=== PATIENT | male | born 1965 | race Caucasian/White ===

== ENCOUNTER 2019-03-06 09:49 | Emergency (ER) | payer SELFPAY ==
[2019-03-06 10:05] VITALS: TEMP 98.7; BMI 25.8
[2019-03-06] MEDS ORDERED: KETOROLAC TROMETHAMINE 30 MG/1 ML VIAL IVPUSH ONE (10:21)
[2019-03-06] MEDS ORDERED: KETOROLAC TROMETHAMINE 30 MG/1 ML VIAL ONE (10:22)
--- NOTE | 2019-03-06 10:36 | PDOC ---
Documentation entered by Lucrecia Wall SCRIBE, acting as scribe for Chan Parks MD. Chan Parks MD: This documentation has been prepared by the [employer], SCRIBE, under my direction and personally reviewed by me in its entirety. I confirm that the documentation accurately reflects all work, treatment, procedures, and medical decision making performed by me. History of Present Illness - General Chief Complaint: Pain Stated Complaint: ABD PAIN Time Seen by Provider: 03/06/19 10:05 History Source: Patient Exam Limitations: No Limitations - History of Present Illness Initial Comments: 03/06/19 10:39 The patient is a 53 year old male with a past medical history of hypertension who presents to the emergency department for evaluation of right groin pain and right flank pain. The patient reports waking up at 3am with moderate right groin pain which resolved after 30 minutes. Patient reports recurrence of right groin pain after waking up again at 6am. He describes the episodes as intermittent in nature, radiating to his right flank. Patient denies dysuria, but notes slow urination which is abnormal for him. He denies taking any medication for the aforementioned pain. The patient states he has never had this pain before which prompted him to come in for further evaluation. He denies nausea, vomiting, fevers, chills, urinary urgency, hematuria, and testicular pain. Denies chest pain, shortness of breath, headache, and dizziness. Denies history of kidney stones, hernias, or abdominal surgeries. Allergies: No known allergies. Social History: Endorses alcohol consumption. No reported cigarette or drug use. Surgical History: Denies. Past History - Past Medical History Allergies/Adverse Reactions: Allergies Allergy/AdvReac Type Severity Reaction Status Date / Time No Known Allergies Allergy Verified 03/06/19 09:57 Home Medications: Ambulatory Orders Ibuprofen 600 mg PO TID PRN #20 tablet 03/06/19 Oxycodone HCl/Acetaminophen [Percocet 5-325 mg Tablet] 1 - 2 tab PO TID PRN #14 tab MDD 6 tabs 03/06/19 Tamsulosin HCl [Flomax] 0.4 mg PO HS #7 cap.er.24h 03/06/19 COPD: No HTN: Yes - Suicide/Smoking/Psychosocial Hx Smoking History: Never smoked Have you smoked in the past 12 months: No Information on smoking cessation initiated: No Hx Alcohol Use: No Drug/Substance Use Hx: No Review of Systems - Review of Systems Constitutional: No: Chills, Fever Respiratory: No: Cough, Shortness of Breath Cardiac (ROS): No: Chest Pain ABD/GI: No: Constipated, Diarrhea, Nausea, Vomiting : Yes: See HPI Neurological: No: Headache All Other Systems: Reviewed and Negative *Physical Exam - Vital Signs Last Vital Signs Temp Pulse Resp BP Pulse Ox 98.7 F 95 H 16 191/98 H 100 03/06/19 09:50 03/06/19 09:50 03/06/19 09:50 03/06/19 09:50 03/06/19 09:50 - Physical Exam Comments: 03/06/19 10:39 GENERAL: The patient is awake, alert, and fully oriented, in no acute distress. HEAD: Normal with no signs of trauma. EYES: Pupils equal, round and reactive to light, extraocular movements intact, sclera anicteric, conjunctiva clear with no pallor. ENT: Ears normal, nares patent, oropharynx clear without exudates. Moist mucous membranes. NECK: Normal range of motion, supple without lymphadenopathy, JVD, or masses. LUNGS: Breath sounds equal, clear to auscultation bilaterally. No wheeze/ crackles. HEART: Regular rate and rhythm, normal S1 and S2 without murmur or rub. ABDOMEN: (+)Right CVA tenderness. (+)Lateral right abdominal discomfort upon palpation, no rebound or guarding. No focal right lower quadrant tenderness. No palpable lymphadenopathy or inguinal hernia. : uncircumsized penis, normal without penile discharge. No testicular pain. EXTREMITIES: Normal range of motion, no edema. No clubbing or cyanosis. No cords, erythema, or tenderness. NEUROLOGICAL: Cranial nerves II through XII grossly intact. Normal speech, normal gait. PSYCH: Normal mood, normal affect. SKIN: Warm, Dry, normal turgor, no rashes or lesions noted. ED Treatment Course - LABORATORY CBC & Chemistry Diagram: 03/06/19 10:00 03/06/19 10:00 - RADIOLOGY Radiology Studies Ordered: Category Date Time Status ABDOMEN & PELVIS CT W/O CONTR [CT] Stat CT Scan 03/06/19 10:23 Ordered - Medications Given in the ED: ED Medications Discontinued Medications Generic Name Dose Route Start Last Admin Trade Name Onelia PRN Reason Stop Dose Admin Ketorolac Tromethamine 30 mg 03/06/19 10:21 03/06/19 10:25 Toradol Injection - IVPUSH 03/06/19 10:22 30 mg ONCE ONE Administration Medical Decision Making - Medical Decision Making 03/06/19 10:33 53-year-old male with history of hypertension presents with acute onset of right groin pain that awoke him from sleep overnight, resolved and recurred this morning, now persistent and radiating to the right flank. Associated with some slow urine stream, otherwise no gross hematuria/fever/chills. No other GI complaints. No history of gallstones or nephrolithiasis. No surgical history. Vitals as noted, slightly elevated blood pressure in the setting of being an acute pain Standing by stretcher, writhing a bit, otherwise conversant Heart is regular, lungs are clear Abdomen is soft/nondistended, discomfort to palpation along the lateral right abdomen including right CVA tenderness. No hernia, no palpable lymphadenopathy, normal exam 53-year-old male with acute onset of colicky right flank pain with associated urinary complaints, could be most consistent with renal colic, less likely GI. Labs, urinalysis CT of the abdomen and pelvis Pain control Reassess 03/06/19 12:10 4x3mm R UVJ stone with mild hydro. labs wnl including Cr 1.3, UA pending. 03/06/19 13:13 ua with blood/rbc, negative leuk/nitri/wbc. Feels much better, agrees with d/c on pain meds with f/u. understands return criteria. *DC/Admit/Observation/Transfer Diagnosis at time of Disposition: Right flank pain, Nephrolithiasis - Discharge Dispostion Disposition: HOME Condition at time of disposition: Improved - Prescriptions Prescriptions: Ibuprofen 600 mg PO TID PRN #20 tablet PRN Reason: Pain Level 1-5 Oxycodone HCl/Acetaminophen [Percocet 5-325 mg Tablet] 1 - 2 tab PO TID PRN #14 tab MDD 6 tabs PRN Reason: Severe Pain Tamsulosin HCl [Flomax] 0.4 mg PO HS #7 cap.er.24h - Referrals Referrals: Lew Palacios MD [Staff Physician] - - Patient Instructions Printed Discharge Instructions: DI for Kidney Stones Additional Instructions: Activity as tolerated. Stay hydrated. Blood tests and a urine test showed no acute abnormalities. A CAT scan showed a 4 x 3 mm kidney stone on the right. Ibuprofen as prescribed as needed for moderate pain, Percocet as prescribed as needed for severe pain. Percocet can make you lightheaded, so take proper precautions. Flomax as prescribed until the stone passes. Continue your medications as previously prescribed by your physician. You should follow up with your primary doctor and a urologist (consider calling Dr. Palacios) as soon as possible regarding today's emergency department visit. Return to the emergency department for any new or concerning symptoms, particularly persistent or worsening pain, fevers or chills, difficulty urinating. - Post Discharge Activity
[2019-03-06 11:11] LABS: BASO % 0.4 % (0-2.0); EOS % 0.5 % (0-4.5); HEMATOCRIT 44.3 % (35.4-49); HEMOGLOBIN 15.5 GM/dL (11.7-16.9); LYMPH % 25.4 % (8-40); MCH 33.8 pg (25.7-33.7); MEAN CELL VOLUME 96.6 fl (80-96); MEAN PLT VOLUME 8.7 fl (7.5-11.1); MONO % 6.1 % (3.8-10.2); NEUT % 67.6 % (42.8-82.8); PLATELET COUNT 254 K/MM3 (134-434); RBC 4.59 M/mm3 (4.00-5.60); RDW 13.5 % (11.9-15.9); WHITE BLOOD COUNT 10.4 K/mm3 (4.0-10.0)
[2019-03-06 11:47] LABS: ALBUMIN 4.2 g/dl (3.4-5.0); BILIRUBIN,TOTAL 0.6 mg/dL (0.2-1); CALCIUM 9.1 mg/dL (8.5-10.1); CREATININE 1.3 mg/dL (0.55-1.3); POTASSIUM 4.7 mmol/L (3.5-5.1)
[2019-03-06 12:58] LABS: EPI CELLS 0.7 /HPF (0-5/HPF); HYALINE CASTS 3 /lpf (0-8); URINE APPEARANCE CLEAR; URINE BACTERIA 1.2 /hpf (NEGATIVE); URINE BILIRUBIN NEGATIVE (NEGATIVE); URINE COLOR YELLOW; URINE GLUCOSE (UA) NEGATIVE (NEGATIVE); URINE KETONE TRACE (NEGATIVE); URINE LEUK ESTERASE NEGATIVE (NEGATIVE); URINE NITRITE NEGATIVE (NEGATIVE); URINE PROTEIN NEGATIVE (NEGATIVE); URINE RBC 21 /hpf (0-4); URINE UROBILINOGEN 0.2 mg/dL (0.2-1.0); URINE WBC 1 /hpf (0-5)
[2019-03-06 14:21] VITALS: BP 157/92; PULSE 68
== END 2019-03-06 14:21 | disposition home or self-care (01) ==
LOC: JER 09:49
PROC: 3E0333Z Introduction of Anti-inflammatory into Peripheral Vein, Percutaneous Approach (ICD-10-PCS; principal; 2019-03-06)
DX: N13.2 Hydronephrosis with renal and ureteral calculous obstruction (principal); I10 Essential (primary) hypertension
CPT/HCPCS: 36415; 74176-TC; 80053; 81003; 83690; 85025; 99282-25